=== PATIENT | female | born 1990 | race Native Hawaiian/Other Pacific Islander ===

== ENCOUNTER 2018-10-26 15:02 | Emergency (ER) | payer SELFPAY ==
[2018-10-26 15:06] VITALS: BP 113/75; PULSE 91; RESP 20; TEMP 98.9; O2SAT 98
[2018-10-26] MEDS ORDERED: Amoxicillin-Clav 875-125 mg Tab PO STA (15:31)
[2018-10-26] MEDS ORDERED: Amoxicillin-Clav 875-125 mg Tab PO ONE (15:42)
--- NOTE | 2018-10-26 18:38 | C.PDOC ---
History Of Present Illness 28 year old female presents to the emergency department with complaints of sore throat and pain upon swallowing for the past couple of days. Patient states that she has pus coming out of her right tonsil, but denies fever and states that she's able to tolerate PO. Time Seen by Provider: 10/26/18 15:14 Chief Complaint (Nursing): ENT Problem History Per: Patient History/Exam Limitations: no limitations Onset/Duration Of Symptoms: Days Location Of Pain: Throat Associated Symptoms: Sore Throat. denies: Fever Past Medical History Reviewed: Historical Data, Nursing Documentation, Vital Signs Vital Signs: Last Vital Signs Temp 98.9 F 10/26/18 15:03 Pulse 91 H 10/26/18 15:03 Resp 20 10/26/18 15:03 BP 113/75 10/26/18 15:03 Pulse Ox 98 10/26/18 15:03 - Medical History PMH: No Chronic Diseases Surgical History: No Surg Hx Family History: States: No Known Family Hx - Social History Hx Alcohol Use: Yes Hx Substance Use: Yes - Immunization History Hx Tetanus Toxoid Vaccination: No Hx Influenza Vaccination: No Review Of Systems Except As Marked, All Systems Reviewed And Found Negative. Constitutional: Negative for: Fever, Chills ENT: Positive for: Throat Pain, Other (tonsillar discharge ) Gastrointestinal: Negative for: Nausea, Vomiting, Abdominal Pain, Diarrhea Physical Exam - Physical Exam Appears: Well, Non-toxic, No Acute Distress Skin: Normal Color, Warm, Dry Head: Atraumatic, Normacephalic Eye(s): bilateral: Normal Inspection, PERRL, EOMI Nose: Normal Oral Mucosa: Moist Throat: Erythema (to the right tonsil), Exudate (on right tonsil), No Drooling, No Mass, Other (uvula midline) Neck: Normal ROM, Supple Lymphatic: Adenopathy (anterior cervical lymphadenopathy ) Chest: Symmetrical, No Tenderness Cardiovascular: Rhythm Regular, No Murmur Respiratory: Normal Breath Sounds, No Rales, No Rhonchi, No Wheezing Neurological/Psych: Oriented x3, Normal Speech, Normal Cognition ED Course And Treatment O2 Sat by Pulse Oximetry: 98 (RA) Pulse Ox Interpretation: Normal Medical Decision Making Medical Decision Making: Plan: Augmentin 1 tab PO Decadron Inj 10mg IM Motrin 600mg PO Disposition - Disposition Referrals[facility] Disposition: HOME/ ROUTINE Disposition Time: 15:30 Condition: GOOD Additional Instructions: LEVI ZAMAN, thank you for letting us take care of you today. The emergency medical care you received today was directed at your acute symptoms. If you were prescribed any medication, please fill it and take as directed. It may take several days for your symptoms to resolve. Return to the Emergency Department if your symptoms worsen, do not improve, or if you have any other pr oblems. Please contact your doctor or call one of the physicians/clinics you have been referred to that are listed on the Patient Visit Information form that is included in your discharge packet. Bring any paperwork you were given at discharge with you along with any medications you are taking to your follow up visit. Our treatment cannot replace ongoing medical care by a primary care provider outside of the emergency department. Thank you for allowing the [facility] team to be part of your care today. Follow up with your primary care doctor or the clinic this week for re-evaluation and further management. Prescriptions: Amoxicillin/Clavulanate [Augmentin 875 MG-125 MG] 1 tab PO BID #14 tab Ibuprofen [Motrin] 600 mg PO Q6 PRN #20 tab PRN Reason: Pain, Moderate (4-7) predniSONE [Prednisone] 40 mg PO DAILY #6 tab Instructions: Sore Throat, Adult (DC) Forms: [employer] ([place]) - Clinical Impression Clinical Impression: Acute bacterial tonsillitis - Scribe Statement The provider has reviewed the documentation as recorded by the Scribe (Jose Mendoza) Provider Attestation: All medical record entries made by the Scribe were at my direction and personally dictated by me. I have reviewed the chart and agree that the record accurately reflects my personal performance of the history, physical exam, medical decision making, and the department course for this patient. I have also personally directed, reviewed, and agree with the discharge instructions and disposition.
== END 2018-10-26 16:04 | disposition home or self-care (01) ==
LOC: C.ER 15:02 → MERGE 15:02 → C.ER 16:04
DX: J03.90 Acute tonsillitis, unspecified (principal)
CPT/HCPCS: 96372; 99283; J1100